=== PATIENT | female | born 1970 | race Two or more races ===

== ENCOUNTER 2024-11-28 05:50 | Day surgery (SDC) | payer MEDICAID, SELFPAY ==
[2024-11-27 12:11] VITALS: BMI 34.7
--- NOTE | 2024-11-27 12:25 | EKG_ITS ---
[facility] Test Date: 2024-11-27 Pat Name: CARINA NOONAN Department: Room: - Gender: Female Jacquard Card Lacer: LISSY : 1970 Requested By: Sergio Milian Order Number: [id number] Reading MD: Sergio Milian Measurements Intervals [place] Rate: 63 P: 30 [place]: 156 QRS: 10 QRSD: 110 T: 5 QT: 441 QTc: 452 Interpretive Statements SINUS RHYTHM WITH OCCASIONAL SUPRAVENTRICULAR PREMATURE COMPLEXES INCOMPLETE RIGHT BUNDLE BRANCH BLOCK [90+ ms QRS DURATION, TERMINAL R IN V1/V2, 40+ ms S IN I/aVL/V4/V5/V6] No previous ECG available for comparison /[id number]/[email or web address]/[id number].pdf
[2024-11-27 12:56] LABS: Basophils # (Auto) 0.1 Thou/mm3 (0.0-0.2); Basophils % (Auto) 1 % (0-2.5); Eosinophils # (Auto) 0.2 Thou/mm3 (0.0-0.5); Eosinophils % (Auto) 2 % (0-10); Hematocrit 42.8 % (36.0-46.0); Hemoglobin 14.0 g/dL (12.0-16.0); Immature Granulocytes Auto 0.01 Thou/mm3 (0.00-0.00); Lymphocytes # (Auto) 3.7 Thou/mm3 (1.0-4.8); Lymphocytes % (Auto) 41 % (10-50); Mean Corpuscular HGB Conc 32.7 g/dl (31.0-37.0); Mean Corpuscular Hemoglobin 30.0 pg (25.0-35.0); Mean Corpuscular Volume 92 fL (80-100); Monocytes # (Auto) 0.8 Thou/mm3 (0.0-0.8); Monocytes % (Auto) 9 % (0-12); Neutrophils # (Auto) 4.2 Thou/mm3 (1.8-7.7); Neutrophils % (Auto) 47 % (37-80); Nucleated Red Blood Cell # 0.00 Thou/mm3 (0.00-0.00); Nucleated Red Blood Cell % 0 /100 WBC (0); Platelet Count 317 Thou/mm3 (140-440); RDW Standard Deviation 46.4 fL (36.4-46.3); Red Blood Count 4.67 Miln/mm3 (4.00-5.20); White Blood Count 8.9 Thou/mm3 (3.6-11.0)
[2024-11-27 13:03] LABS: Anion Gap 9 (7-16); BUN/Creatinine Ratio 7 Ratio (12-20); Blood Urea Nitrogen 5 mg/dL (9-23); Calcium 9.1 mg/dL (8.3-10.6); Carbon Dioxide 27.2 mMol/L (20.0-31.0); Chloride 106 mMol/L (98-107); Creatinine (Component) 0.7 mg/dL (0.6-1.3); Estimated Creatinine Clearance 93.6 mL/min (>60); Glucose 85 mg/dL (74-106); Osmolality,Calculated 279 (275-295); Potassium 4.2 mMol/L (3.4-5.1); Sodium 142 mMol/L (136-145); eGFR > 60 See Note
[2024-11-27 13:07] LABS: INR 1.0 (0.9-1.3); Partial Thromboplastin Time 28.7 Seconds (22.0-36.0); Prothrombin Time 10.4 Seconds (9.0-12.2)
--- NOTE | 2024-11-27 14:55 | SUR.PREOP ---
Pt notified to come in at 0630 tomorrow for surgery.
[2024-11-28] VITALS (7 sets, daily range): BP systolic 100–116; BP diastolic 59–80; PULSE 68–95; RESP 12–18; TEMP 36.4–36.7; O2SAT 95–100; BMI 35.6
--- NOTE | 2024-11-28 07:23 | SUR.PREOP ---
Patient expressed gratitude for prayer before their procedure.
--- NOTE | 2024-11-28 10:04 | ESOP_ITS ---
Date of Procedure 11/28/24 Pre Op Diagnosis 1. Torn medial meniscus right knee joint 2 torn lateral meniscus 3 DJD 4. Synovitis with medial plica Post Op Diagnosis Same Procedure 1. Partial medial meniscectomy 2 partial lateral meniscectomy 3 chondroplasty 4 partial synovectomy including excision plica Findings Refer dictation Procedure Description The patient was given general endotracheal anesthesia. Once satisfactory anesthesia was achieved, tourniquet was placed on right upper thigh. Following that the part was thoroughly prepped and draped. After using Esmarch the tourniquet pressure was raised to 350 mmHg. A skin incision was made proximal to lateral tibial plateau and arthroscope was introduced in the usual fashion. Another a skin incision was made in suprapatellar pouch area and outlet was established. The findings were noted as below. In suprapatellar pouch area significant synovial tissue inflammation was present. Medial plica was present as well. The undersurface of patella showed grade 3/4 chondromalacia. The anterior femoral condyle showed grade 4 chondromalacia. Soft tissue impingement was p resent. The patellar tracking was checked and found to be good. The medial compartment showed grade 3/4 chondromalacia for medial tibial plateau and medial femoral condyle. 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 The medial meniscus showed degeneration and tear of the anterior horn. It also showed torn posterior horn of medial meniscus Another skin incision was made proximal to medial tibial plateau and a probe was introduced and findings were confirmed. The anterior cruciate ligament was intact. The anterior drawer test was performed and found to be good. With the help of probe the integrity was tested and found to be good The lateral compartment showed grade III chondromalacia lateral femoral condyle and tibial plateau. Lateral meniscus showed degeneration of the body and anterior horn. A basket was introduced and torn part of the medial meniscus was excised. A shaver was introduced and shaving of the anterior horn and posterior horn of medial meniscus was performed. Soft tissue impingement was shaved off. Chondroplasty of the medial femoral condyle and medial tibial plateau was performed. The shaving of the body and anterior horn of lateral meniscus was done. Chondroplasty of the lateral compartment was done. The chondroplasty of the patella and and anterior femoral condyle was performed. The soft tissue impingement was shaved off. A partial synovectomy including excision of plica was performed. Copious amount of irrigation was used to irrigate the knee joint. All the debris were removed. 3-0 Prolene was used to close the wound. About 20 mL of quarter percent Marcaine along with 10 mg of Duramorph was injected. Patient tolerated procedure well. Estimated blood loss was about 5 mL. Prognosis in this case is guarded. Because of some areas having grade IV chondromalacia there is a possibility patient may continue having pain. In that case patient may be a candidate for knee replacement. Patient is fully aware of that patient was taken to the recovery room in good condition. Anesthesia GETA Pathology / specimen None Estimated Blood Loss 1 Surgeon Sergio Burger MD Surgical Staff Operation Date: 11/28/24 08:45 Case Staff Anesthesiologist: Bereket Lion
--- NOTE | 2024-11-28 10:08 | SUR.PHASEI ---
1008: Pt. AAOx4, vitals stable, breathing unlabored, no complaint of pain or nausea, dressing to right knee CDI, no active bleed noted, bilateral dorsalis pedis pulses strong and regular, cap refill to bilateral feet less than 3 seconds, pt. able to move bilateral legs, report received from MD Lion and Dell GONSALES.
[2024-11-28] MEDS: fentaNYL CIT INJ 50 mCg/ML AMP 2ML IVP (10:10)
--- NOTE | 2024-11-28 10:33 | SUR.OPER ---
Late Entry: Two bruises noted to lateral right knee area both approx 0.5 inches by 0.5 inches.
--- NOTE | 2024-11-28 10:54 | ESHP_ITS ---
RE: CARINA NOONAN : 1970 DATE OF ADMISSION: 11/28/2024 The patient came to my office on 11/27/2024 for detailed preop history and physical examination. HISTORY OF PRESENTING COMPLAINT: The patient has got pain, swelling, clicking, and locking of the right knee joint. This is going on for a long period of time. Recently, the pain is quite severe. The patient graded intensity of pain to be 8-9/10. Quality of life factors of daily living is affected. The patient is unable to walk more than 1 block. Sleep is affected as well. PAST MEDICAL HISTORY: The patient denies history of diabetes mellitus, high blood pressure, asthma, seizure, chest pain, myocardial infarction, or bleeding disorder. However, the patient is having . PAST SURGICAL HISTORY: Nil known. DRUG HISTORY: The patient is taking; 1. Ibuprofen. 2. Hydroxyzine. 3. Omeprazole. 4. Zepbound. ALLERGIES: NONE KNOWN. FAMILY HISTORY AND SOCIAL HISTORY: The patient denies smoking, drinking and is not working. PHYSICAL EXAMINATION: GENERAL: Rather overweight lady. BMI is 35.41. VITAL SIGNS: Pulse 88 per minute. Blood pressure 136/74. NECK: Soft, supple. No masses felt. Trachea is centrally placed. CARDIOVASCULAR SYSTEM: First and second heart sounds normal. No murmur heard. RESPIRATORY SYSTEM: Bilateral vesicular breath sounds. CHEST: Clear. ABDOMEN: Soft. No masses felt. Bowel sounds present. BREAST: Breast examination not indicated in this case. EXTREMITIES: Right knee examination revealed 1+ swelling and 2+ tenderness. There is genu varum deformity. Active range of motion 0 to 115 degrees of flexion. Patellofemoral crepitus is present. Brian's test is positive. Drawer and Sanjana tests were negative. Neurovascularly, it status is intact. The patient walks with limp. DIAGNOSTIC DATA: MRI scan of the right knee joint revealed torn meniscus, degenerative joint disease, and synovitis with increased joint fluid. ASSESSMENT AND PLAN: Since the patient is asymptomatic, an MRI scan confirmed torn meniscus. Therefore, a right knee arthroscopy was discussed and advised. Risks with anesthesia was explained and that includes, but not limited to reaction to anesthetic agents, cardiac arrest, and rarely it might be fatal. Risks with operations include infection and if that happens, the patient may need further surgical procedure. Other risks include delayed healing, wound dehiscence, etc. No guarantee is given regarding outcome of the procedure and/or relief of symptoms. Indeed, if one finds grade 3 and/or grade 4 chondromalacia, the patient may continue having pain and may be a candidate for knee replacement later on. The patient is fully aware of that. Surgery is booked for 11/28/2024. All appropriate lab work is done. DT: 10:13:50 TT: 10:52:00 Ref: [id number] - TID: [id number]
--- NOTE | 2024-11-28 11:05 | SUR.PHASEII ---
1105: Pt. AAOx4, vitals stable, breathing unlabored, no complaint of pain or nausea, dressing to right knee CDI, no active bleed noted, bilateral dorsalis pedis pulses strong and regular, pt. tolerated sips of water well, pt. ambulated to wheelchair with steady gait and no assit, no complications. Gave discharge instructions to the pt. and her ride, both verbalized understanding and had no further questions. Pt. left with all personal belongings.
--- NOTE | 2024-12-02 13:23 | ESPR_ITS ---
Documentation for date of: 12/02/24 POST ANESTHESIA NOTE: Patient had general LMA anesthesia for R knee scope on 11/28/24. I just called her number for follow up via canal equipment maintenance supervisor but no answer. Bereket Lion MD Anesthesia Progress Note Progress Note Most recent Vital Signs: Last Vital Signs Temp 97.7 F 11/28/24 10:53 Pulse 72 11/28/24 10:53 Resp 12 11/28/24 10:53 BP 100/60 11/28/24 10:53 Pulse Ox 98 11/28/24 10:53 O2 Flow Rate 3 11/28/24 10:13
== END 2024-11-28 11:05 | disposition home or self-care (01) ==
PROVIDERS: PCP Family Medicine; Referring Provider Orthopaedic Surgery; Visit Provider Orthopaedic Surgery
PROC: (CPT 29870; principal; 2024-11-28 08:45)
DX: S83.241A Other tear of medial meniscus, current injury, right knee, initial encounter (principal); M26.81 Anterior soft tissue impingement; M65.861 Other synovitis and tenosynovitis, right lower leg; M17.11 Unilateral primary osteoarthritis, right knee; M67.51 Plica syndrome, right knee; M22.41 Chondromalacia patellae, right knee; M23.341 Other meniscus derangements, anterior horn of lateral meniscus, right knee; Z01.810 Encounter for preprocedural cardiovascular examination
CPT/HCPCS: 29880; 36415; 80048; 85025; 85610; 85730; 93005; A4217; A4649; J0131; J0690; J1100; J2250; J2274; J2405; J2704; J2765; J3010; J3490; J0665; J2270